=== PATIENT | male | born 1985 | race Two or more races ===

== ENCOUNTER 2021-09-06 23:49 | Emergency (ER) | payer SELFPAY ==
[2021-09-07 00:55] LABS: Absolute Lymphocytes (CBC) 1.8 K/uL (0.7-4.9); Basophils % 0.6 % (0-1.3); Hematocrit 45.7 % (39.6-49.0); Lymphocytes % 31.2 % (15.3-44.8); MPV 8.7 fL (7.6-11.3)
[2021-09-07 01:04] LABS: Potassium 3.8 mmol/L (3.5-5.1)
[2021-09-07] MEDS ORDERED: NA CHLORIDE 0.9% 1,000 ML ONE (01:06)
[2021-09-07] MEDS ORDERED: LIDOCAINE 1% MPF 5 ML VIAL ONE (01:06)
[2021-09-07 01:14] LABS: Urine Blood 1+ (Negative); Urine Glucose Negative (Negative); Urine Protein Negative (Negative); Urine Specific Gravity 1.015 (1.005-1.030)
[2021-09-07 01:24] LABS: Barbiturates NEGATIVE (NEGATIVE); Benzodiazepines NEGATIVE (NEGATIVE); Cocaine NEGATIVE (NEGATIVE); METHAMPHETAM NEGATIVE (NEGATIVE); Methadone NEGATIVE (NEGATIVE); Opiates NEGATIVE (NEGATIVE); Phencyclidine NEGATIVE (NEGATIVE); THC Cannibis NEGATIVE (NEGATIVE)
[2021-09-07] MEDS ORDERED: CEFAZOLIN SODIUM 1 GM/VIAL ONE (02:15)
[2021-09-07] MEDS ORDERED: DERMABOND SKIN ADHESIVE TOP ONE (02:15)
[2021-09-07] MEDS ORDERED: TETANUS & DIPHTHERIA TOX,ADULT 0.5 ML VIAL ONE (02:18)
[2021-09-07] MEDS ORDERED: NA CHLORIDE 0.9% 50 ML ONE (02:18)
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
[2021-09-07] MEDS ORDERED: TETRACAINE HCL 0.5% 4ML OPTH ONE (02:51)
[2021-09-07] MEDS ORDERED: FLUORESCEIN SODIUM 1 MG/WRAP ONE (02:51)
[2021-09-07 03:38] VITALS: TEMP 99
[2021-09-07 03:39] VITALS: O2SAT 98
[2021-09-07 03:41] VITALS: BP 112/69
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
== END 2021-09-07 03:29 | disposition home or self-care (01) ==
LOC: ER 23:49
PROC: 08QNXZZ Repair Right Upper Eyelid, External Approach (ICD-10-PCS; principal; 2021-09-06)
DX: S01.112A Laceration without foreign body of left eyelid and periocular area, initial encounter (principal); S00.31XA Abrasion of nose, initial encounter; V43.52XA Car driver injured in collision with other type car in traffic accident, initial encounter; F10.10 Alcohol abuse, uncomplicated; Z23 Encounter for immunization
CPT/HCPCS: 36415; 70450; 71260; 72125; 74177; 80048; 80307; 80320; 81003; 82565; 85025; 86850; 86900; 86901; 90471; 90714; 96361; 96374; 99285; J0690; J7030; Q9967